=== PATIENT | male | born 1950 | race Two or more races ===

== ENCOUNTER 2024-07-12 14:09 | Inpatient (IN) | payer MEDICARE ==
[~2024-07-12] VITALS: Ht 182.9 cm; Wt 83.0 kg
[2024-07-12] MEDS: IV NS 0.9% 1,000 ML BAG IV ONE (14:52)
[2024-07-12 15:12] LABS: EOSINOPHILS # (AUTO) 0.1 K/uL (0.0-0.7); EOSINOPHILS % (AUTO) 1.3 % (0.0-6.0); HEMATOCRIT 45 % (39-51); HEMOGLOBIN 15.7 g/dL (13.5-17.5); LYMPHOCYTES # (AUTO) 1.7 K/uL (0.8-4.8); LYMPHOCYTES % (AUTO) 32.7 % (20.0-44.0); MEAN CORPUSCULAR HEMOGLOBIN 39 PG (26.0-33.0); MEAN CORPUSCULAR HGB CONC 35 g/dl (31.0-36.0); MEAN CORPUSCULAR VOLUME 112 fL (80-96); MONOCYTES # (AUTO) 0.3 K/uL (0.1-1.30); MONOCYTES % (AUTO) 6.3 % (2.0-12.0); NEUTROPHILS % (AUTO) 58.7 % (43.0-81.0); PLATELET COUNT (AUTO) 163 K/uL (150-450); RED CELL DISTRIBUTION WIDTH 14.6 % (11.5-15.0); WHITE BLOOD COUNT (AUTO) 5.2 K/uL (4.3-11.0)
[2024-07-12 15:22] LABS: SERUM AMMONIA 22 umol/L (11-32)
[2024-07-12 15:27] LABS: ALANINE AMINOTRANSFERASE 39 U/L (12-78); ALBUMIN 3.3 g/dL (3.4-5.0); ALCOHOL, BLOOD 3 mg/dL (0-10); ALKALINE PHOSPHATASE 73 U/L (46-116); ASPARTATE AMINOTRANSFERASE 99 U/L (15-37); BILIRUBIN,DIRECT 0.9 mg/dL (0.0-0.2); CALCIUM, SERUM 8.8 mg/dL (8.5-10.1); CARBON DIOXIDE 24 mmol/L (21-32); CHLORIDE 93 mmol/L (98-107); CREATININE 1.5 mg/dL (0.6-1.3); GLUCOSE 183 mg/dL (74-106); POTASSIUM 3.4 mmol/L (3.5-5.1); SODIUM SERUM 132 mmol/L (136-145); TOTAL PROTEIN, SERUM 7.4 g/dL (6.4-8.2); UREA NITROGEN, BLOOD 15 mg/dL (7-18)
[2024-07-12 15:43] LABS: INR 1.24 (0.91-1.10); PARTIAL THROMBOPLASTIN TIME 28.3 SEC (24.3-34.3)
[2024-07-12 16:20] LABS: APPEARANCE,URINE CLEAR (CLEAR); BILIRUBIN,URINE NEGATIVE (NEGATIVE); BLOOD, URINE TRACE-INTA Ery/uL (NEGATIVE); COLOR,URINE YELLOW (YELLOW); KETONES,URINE TRACE mg/dL (NEGATIVE); LEUKOCYTE ESTERASE ,URINE NEGATIVE (NEGATIVE); NITRITE, URINE NEGATIVE (NEGATIVE); PH,URINE 6.5 (5.0-8.0); PROTEIN,URINE NEGATIVE (NEGATIVE); UGLUCOSE TRACE mg/dL (NEGATIVE)
[2024-07-12 16:28] LABS: ADD URINE CULTURE NO; BACTERIA,URINE None seen /HPF (None Seen); SQUAMOUS EPITHELIAL CELL,UR 0-2 /HPF (None Seen); WBC,URINE 0-2 /HPF (0-3)
[2024-07-12 16:43] LABS: AMPHETAMINE, URINE NEGATIVE (NEGATIVE); BARBITURATE, URINE NEGATIVE (NEGATIVE); BENZODIAZEPINE, URINE NEGATIVE (NEGATIVE); CANNABINOID, URINE NEGATIVE (NEGATIVE); COCCAINE, URINE NEGATIVE (NEGATIVE); OPIATE, URINE NEGATIVE (NEGATIVE); PHENCYCLIDINE SCREEN,URINE NEGATIVE (NEGATIVE)
[2024-07-12 18:50] LABS: ANISOCYTOSIS 1+; EOSINOPHILS % (MANUAL) 2 % (0-4); LYMPHOCYTES % (MANUAL) 26 % (16-48); MONOCYTES % (MANUAL) 8 % (0-11.0); NEUTROPHILS % (MANUAL) 64 (42-76); PLATELET ESTIMATE ADEQUATE
[2024-07-12] MEDS ORDERED: FOLIC ACID 1 MG TABLET ONE (19:34)
[2024-07-12] MEDS ORDERED: THIAMINE HCL 100 MG TABLET ONE (19:34)
[2024-07-12] MEDS ORDERED: ASPIRIN EC 325 MG TABLET.DR PO ONE (19:34)
[2024-07-12] MEDS: THIAMINE HCL 100 MG TABLET PO ONE (19:39)
[2024-07-12] MEDS: ASPIRIN EC 325 MG TABLET.DR PO ONE (19:39)
[2024-07-12] MEDS: FOLIC ACID 1 MG TABLET PO ONE (19:39)
[2024-07-12] MEDS ORDERED: Z GUARD REMEDY 4 OZ OINT TP PRN (20:30)
[2024-07-12] MEDS ORDERED: IV NS 0.9% 1,000 ML IV PRN (20:30)
[2024-07-12] MEDS ORDERED: ACETAMINOPHEN 325 MG TABLET PO PRN (20:30)
[2024-07-12] MEDS ORDERED: ONDANSETRON HCL/PF 4 MG/2 ML VIAL IVP PRN (20:30)
[2024-07-12] MEDS: IV LR 1000 ML 1,000 ML IV PRN (21:18)
[2024-07-12] MEDS: POTASSIUM CHLORIDE 10 MEQ TABLET.SA PO ONE (21:30)
[2024-07-12] MEDS: HEPARIN SODIUM, PORCINE 5000 UNITS/1 ML VIAL SQ SCH (21:41)
[2024-07-13] VITALS: BP 176/81; TEMP 99.3; O2SAT 96
[2024-07-13 04:00] VITALS: BP 148/84; TEMP 98.6; O2SAT 95
[2024-07-13 07:03] LABS: BASOPHILS # (AUTO) 0.1 K/uL (0.0-0.2); BASOPHILS % (AUTO) 0.9 % (0.0-2.0); EOSINOPHILS # (AUTO) 0.1 K/uL (0.0-0.7); EOSINOPHILS % (AUTO) 2.3 % (0.0-6.0); HEMATOCRIT 38 % (39-51); HEMOGLOBIN 13.4 g/dL (13.5-17.5); LYMPHOCYTES # (AUTO) 2.8 K/uL (0.8-4.8); LYMPHOCYTES % (AUTO) 50.3 % (20.0-44.0); MEAN CORPUSCULAR HEMOGLOBIN 38 PG (26.0-33.0); MEAN CORPUSCULAR HGB CONC 35 g/dl (31.0-36.0); MEAN CORPUSCULAR VOLUME 109 fL (80-96); MONOCYTES # (AUTO) 0.5 K/uL (0.1-1.30); MONOCYTES % (AUTO) 8.7 % (2.0-12.0); NEUTROPHILS # (AUTO) 2.1 K/uL (1.8-8.9); NEUTROPHILS % (AUTO) 37.8 % (43.0-81.0); PLATELET COUNT (AUTO) 139 K/uL (150-450); RED BLOOD CELL COUNT(AUTO) 3.47 MIL/uL (4.5-6.0); RED CELL DISTRIBUTION WIDTH 14.7 % (11.5-15.0); WHITE BLOOD COUNT (AUTO) 5.6 K/uL (4.3-11.0)
[2024-07-13 07:44] LABS: CHOLESTEROL 139 mg/dL (<200); HDL CHOLESTEROL 54 mg/dL (40-60); LDL 80 mg/dL (0-99); TRIGLYCERIDES 74 mg/dL (30-150)
[2024-07-13 08:00] VITALS: BP 143/71; TEMP 98.6; O2SAT 95
[2024-07-13] MEDS: PANTOPRAZOLE 40 MG TABLET.DR PO SCH (08:43)
[2024-07-13] MEDS: ASPIRIN 81 MG TAB.CHEW PO SCH (08:43)
[2024-07-13 09:30] LABS: MAGNESIUM 2.5 mg/dL (1.8-2.4)
[2024-07-13 10:38] LABS: CALCIUM, SERUM 8.4 mg/dL (8.5-10.1); CARBON DIOXIDE 26 mmol/L (21-32); CHLORIDE 98 mmol/L (98-107); GLUCOSE 88 mg/dL (74-106); POTASSIUM 3.3 mmol/L (3.5-5.1); SODIUM SERUM 136 mmol/L (136-145); UREA NITROGEN, BLOOD 14 mg/dL (7-18)
[2024-07-13 10:39] LABS: PHOSPHORUS 2.6 mg/dL (2.5-4.9)
[2024-07-13] MEDS: POTASSIUM CHLORIDE 20 MEQ TAB.PRT.SR PO SCH (18:52)
[2024-07-13 20:00] VITALS: BP 147/98; TEMP 98.2; O2SAT 97
[2024-07-14] VITALS: BP 163/78; TEMP 98.8; O2SAT 98
[2024-07-14 04:00] VITALS: BP 155/82; TEMP 98.5; O2SAT 98
[2024-07-14 06:22] LABS: BASOPHILS # (AUTO) 0.1 K/uL (0.0-0.2); BASOPHILS % (AUTO) 1.2 % (0.0-2.0); EOSINOPHILS # (AUTO) 0.1 K/uL (0.0-0.7); EOSINOPHILS % (AUTO) 2.9 % (0.0-6.0); HEMATOCRIT 38 % (39-51); HEMOGLOBIN 13.3 g/dL (13.5-17.5); LYMPHOCYTES # (AUTO) 2.4 K/uL (0.8-4.8); LYMPHOCYTES % (AUTO) 47.8 % (20.0-44.0); MEAN CORPUSCULAR HEMOGLOBIN 39 PG (26.0-33.0); MEAN CORPUSCULAR HGB CONC 35 g/dl (31.0-36.0); MEAN CORPUSCULAR VOLUME 111 fL (80-96); MONOCYTES # (AUTO) 0.4 K/uL (0.1-1.30); MONOCYTES % (AUTO) 7.9 % (2.0-12.0); NEUTROPHILS # (AUTO) 2.1 K/uL (1.8-8.9); NEUTROPHILS % (AUTO) 40.2 % (43.0-81.0); PLATELET COUNT (AUTO) 132 K/uL (150-450); RED CELL DISTRIBUTION WIDTH 14.8 % (11.5-15.0); WHITE BLOOD COUNT (AUTO) 5.1 K/uL (4.3-11.0)
[2024-07-14 06:46] LABS: ALBUMIN 2.6 g/dL (3.4-5.0); BILIRUBIN,TOTAL 1.1 mg/dL (0.2-1.0); CALCIUM, SERUM 8.4 mg/dL (8.5-10.1); CREATININE 1.1 mg/dL (0.6-1.3); MAGNESIUM 1.3 mg/dL (1.8-2.4); PHOSPHORUS 2.1 mg/dL (2.5-4.9); POTASSIUM 3.8 mmol/L (3.5-5.1); TOTAL PROTEIN, SERUM 6.1 g/dL (6.4-8.2)
[2024-07-14 08:00] VITALS: BP 165/99; TEMP 97.3; O2SAT 97
[2024-07-14] MEDS: hydrALAZINE HCL 25 MG TABLET PO SCH (10:09)
[2024-07-14] MEDS: Magnesium 1GM/D5W 100ML PREMIX 100 ML IV SCH (10:53)
[2024-07-14 12:00] VITALS: BP 145/85; TEMP 97.3; O2SAT 97
[2024-07-14 16:00] VITALS: BP 149/79; TEMP 97.8; O2SAT 98
[2024-07-14] MEDS: K PHOS NEUTRAL 250 MG TABLET PO ONE (16:27)
[2024-07-14 20:50] VITALS: BP 128/68; TEMP 98.2; O2SAT 99
[2024-07-15 04:14] VITALS: BP 149/86; TEMP 98.4; O2SAT 98
[2024-07-15 08:00] VITALS: BP 147/90; TEMP 98.4; O2SAT 98
[2024-07-15 08:03] VITALS: BP 147/90
[2024-07-15] MEDS ORDERED: ASPI-1169 PO (08:44)
[2024-07-15] MEDS ORDERED: HYDR-4076 PO (08:45)
[2024-07-16 15:06] LABS: PTH, INTACT 33 pg/mL (15-65)
[2024-07-17 05:06] LABS: *SPE A/G RATIO 0.9 (0.7-1.7); *SPE ALBUMIN 2.7 g/dL (2.9-4.4); *SPE ALPHA-1-GLOBULIN 0.2 g/dL (0.0-0.4); *SPE ALPHA-2-GLOBULIN 0.5 g/dL (0.4-1.0); *SPE BETA GLOBULIN 0.8 g/dL (0.7-1.3); *SPE GLOBULIN, TOTAL 3.1 g/dL (2.2-3.9); *SPE M-SPIKE Not Observed g/dL (Not Observed); *SPE PROTEIN TOTAL 5.8 g/dL (6.0-8.5); *SPEGAMMA GLOBULIN 1.5 g/dL (0.4-1.8)
== END 2024-07-15 15:45 | DRG 682 ==
LOC: ER 14:15 → TELE1 20:15 → MEDSG1 07-14 09:30
PROVIDERS: ADMIT Nurse Practitioner Family; ATTEND Nurse Practitioner Acute Care
DX: N17.9 Acute kidney failure, unspecified (principal); I21.A1 Myocardial infarction type 2; E44.1 Mild protein-calorie malnutrition; Z59.01 Sheltered homelessness; E87.1 Hypo-osmolality and hyponatremia; E86.0 Dehydration; D64.9 Anemia, unspecified; E83.42 Hypomagnesemia; E87.6 Hypokalemia; E88.09 Other disorders of plasma-protein metabolism, not elsewhere classified; I10 Essential (primary) hypertension; F10.10 Alcohol abuse, uncomplicated; Y90.0 Blood alcohol level of less than 20 mg/100 ml; E83.9 Disorder of mineral metabolism, unspecified; K70.0 Alcoholic fatty liver; Z68.24 Body mass index [BMI] 24.0-24.9, adult
CPT/HCPCS: 36415; 70450-TC; 71045-TC; 76700-TC; 76856-TC; 80048-TC; 80053-TC; 80061-TC; 80076-TC; 81001; 82140-TC; 82550-TC; 82607-TC; 83735-TC; 83970; 84100-TC; 84155; 84165; 84439-TC; 84443-TC; 84484-TC; 85025-TC; 85730-TC; 93307-TC; A4223; G0378; G0480; J1644; J3475; J7050; J7120